=== PATIENT | female | born 1990 | race Asian ===

== ENCOUNTER 2021-03-01 14:04 | Emergency (ER) | payer OTHER ==
[~2021-03-01] VITALS: Ht 152.4 cm; Wt 51.4 kg
[2021-03-01 14:19] VITALS: BP 96/65
== END 2021-03-01 16:02 | disposition home or self-care (01) ==
LOC: EMS 14:04
DX: O99.512 Diseases of the respiratory system complicating pregnancy, second trimester (principal); U07.1 COVID-19; Z3A.16 16 weeks gestation of pregnancy
CPT/HCPCS: 99283; U0003